=== PATIENT | female | born 1965 | race Caucasian/White ===

== ENCOUNTER 2016-10-04 13:57 | Inpatient (IN) | payer MEDICARE, MEDICAID ==
[~2016-10-04] VITALS: Ht 172.7 cm; Wt 74.8 kg
[2016-10-04] MEDS: DUONEB INH SCH ×3 (15:56→22:26)
[2016-10-04 15:59] VITALS: BP_SYST 120; BP_SYST 124; RESP 18; TEMP 98
[2016-10-04 16:05] VITALS: Ht 172.7 cm; Wt 74.8 kg
[2016-10-04 17:16] VITALS: RESP 20
[2016-10-04] MEDS: METHYLPRED SOD SUCC 125 MG/2 ML VIAL IV SCH ×2 (17:52→23:38)
[2016-10-04] MEDS: OXYCODONE 5 MG TAB PO PRN (18:38)
[2016-10-04 21:09] VITALS: BP_SYST 111; RESP 20; TEMP 98
[2016-10-04] MEDS: PRAMIPEXOLE 1 MG TAB PO SCH (22:02)
[2016-10-04] MEDS: FLUOXETINE 20 MG CAP PO SCH (22:02)
[2016-10-04] MEDS: THEOPHYLLINE SR 200 MG CAP PO SCH (22:02)
[2016-10-04] MEDS: ROFLUMILAST 500 MCG TAB PO SCH (22:02)
[2016-10-04] MEDS: QUEtiapine 200 MG TAB PO SCH (22:03)
[2016-10-04] MEDS: DIVALPROEX DR 500 MG TAB PO SCH (22:03)
[2016-10-04] MEDS: NICOTINE 21 MG/24 HR TRANSDERM SCH (22:04)
[2016-10-04] MEDS: ACETAMIN/BUTALB/CAFF PO PRN (22:46)
[2016-10-04 23:06] VITALS: BP_SYST 136; RESP 20; TEMP 97.9
[2016-10-05] MEDS: DUONEB INH SCH ×6 (02:10→22:03)
[2016-10-05] MEDS ORDERED: NITROGLYCERIN SL 0.4 MG TAB SL ONE (02:39)
[2016-10-05] MEDS: OXYCODONE 5 MG TAB PO PRN ×3 (03:38→19:43)
[2016-10-05 04:15] VITALS: BP_SYST 120; RESP 18; TEMP 98
[2016-10-05] MEDS: ACETAMIN/BUTALB/CAFF PO PRN ×3 (06:33→23:00)
[2016-10-05] MEDS: METHYLPRED SOD SUCC 125 MG/2 ML VIAL IV SCH ×3 (08:06→23:00)
[2016-10-05] MEDS: ROFLUMILAST 500 MCG TAB PO SCH (08:07)
[2016-10-05] MEDS: THEOPHYLLINE SR 200 MG CAP PO SCH (08:07)
[2016-10-05] MEDS: NICOTINE 21 MG/24 HR TRANSDERM SCH (08:07)
[2016-10-05] MEDS: DIVALPROEX DR 500 MG TAB PO SCH ×2 (08:07→19:43)
[2016-10-05 08:10] VITALS: BP_SYST 110; RESP 20; TEMP 97.4
[2016-10-05 11:33] VITALS: BP_SYST 123; RESP 20; TEMP 97.9
[2016-10-05 17:54] VITALS: BP_SYST 122; RESP 18; TEMP 97.8
[2016-10-05] MEDS: NEB-BROVANA 15 MCG/2 ML INH SCH (18:04)
[2016-10-05] MEDS: NEB-BUDESONIDE 0.5 MG INH SCH (18:04)
[2016-10-05] MEDS: PRAMIPEXOLE 1 MG TAB PO SCH (19:43)
[2016-10-05] MEDS: QUEtiapine 200 MG TAB PO SCH (19:43)
[2016-10-05] MEDS: FLUOXETINE 20 MG CAP PO SCH (19:43)
[2016-10-05 19:44] VITALS: BP_SYST 124; RESP 20; TEMP 98.3
[2016-10-05 22:52] VITALS: BP_SYST 125; TEMP 98.3
[2016-10-06] MEDS: DUONEB INH SCH ×6 (02:13→22:48)
[2016-10-06 02:34] VITALS: BP_SYST 130; RESP 20; TEMP 98
[2016-10-06] MEDS: OXYCODONE 5 MG TAB PO PRN ×3 (04:00→20:23)
[2016-10-06 07:16] VITALS: BP_SYST 142; RESP 20; TEMP 97.6
[2016-10-06] MEDS: ACETAMIN/BUTALB/CAFF PO PRN ×3 (07:16→23:22)
[2016-10-06] MEDS: NEB-BROVANA 15 MCG/2 ML INH SCH ×2 (08:12→18:04)
[2016-10-06] MEDS: NEB-BUDESONIDE 0.5 MG INH SCH ×2 (08:13→18:04)
[2016-10-06] MEDS: NICOTINE 21 MG/24 HR TRANSDERM SCH (08:14)
[2016-10-06] MEDS: METHYLPRED SOD SUCC 125 MG/2 ML VIAL IV SCH ×3 (08:14→23:22)
[2016-10-06] MEDS: THEOPHYLLINE SR 200 MG CAP PO SCH (08:15)
[2016-10-06] MEDS: ROFLUMILAST 500 MCG TAB PO SCH (08:15)
[2016-10-06] MEDS: DIVALPROEX DR 500 MG TAB PO SCH ×2 (08:15→20:21)
[2016-10-06] MEDS ORDERED: MISSING DOSE XX ONE ×2 (09:20→17:00)
[2016-10-06] MEDS ORDERED: ALU/MAG/SIM 30 ML UDC PO PRN (11:45)
[2016-10-06 12:16] VITALS: BP_SYST 129; RESP 20; TEMP 97.8
[2016-10-06] MEDS: FAMOTIDINE 20 MG TAB PO SCH ×2 (13:37→20:21)
[2016-10-06 16:34] VITALS: BP_SYST 129; RESP 20; TEMP 97.6
[2016-10-06 19:33] VITALS: BP_SYST 119; RESP 18; TEMP 98.2
[2016-10-06] MEDS: QUEtiapine 200 MG TAB PO SCH (20:21)
[2016-10-06] MEDS: PRAMIPEXOLE 1 MG TAB PO SCH (20:21)
[2016-10-06] MEDS: BISOPROLOL 5 MG TAB PO SCH (20:21)
[2016-10-06] MEDS: FLUOXETINE 20 MG CAP PO SCH (20:22)
[2016-10-06] MEDS: TERBUTALINE SULF 2.5 MG TAB PO SCH ×2 (20:22→20:23)
[2016-10-06] MEDS ORDERED: SALINE FLUSH 10 ML FLUSH PRN (20:30)
[2016-10-06] MEDS ORDERED: TERBUTALINE SULF 2.5 MG TAB PO SCH (21:00)
[2016-10-06 23:11] VITALS: BP_SYST 119; RESP 18; TEMP 97.3
[2016-10-07] MEDS: DUONEB INH SCH ×6 (02:14→23:01)
[2016-10-07 03:40] VITALS: BP_SYST 116; RESP 20; TEMP 97.4
[2016-10-07] MEDS: OXYCODONE 5 MG TAB PO PRN ×3 (04:25→20:47)
[2016-10-07] MEDS: SODIUM CHLORIDE 0.9% FLUSH BAG 500 ML IV SCH (05:40)
[2016-10-07] MEDS: NEB-BROVANA 15 MCG/2 ML INH SCH ×2 (06:31→18:21)
[2016-10-07] MEDS: NEB-BUDESONIDE 0.5 MG INH SCH ×2 (06:31→18:21)
[2016-10-07 07:10] VITALS: BP_SYST 117; RESP 16; TEMP 98
[2016-10-07] MEDS: ACETAMIN/BUTALB/CAFF PO PRN ×3 (07:29→23:17)
[2016-10-07] MEDS: SALINE FLUSH 10 ML FLUSH SCH ×2 (10:11→20:58)
[2016-10-07] MEDS: THEOPHYLLINE SR 200 MG CAP PO SCH (10:11)
[2016-10-07] MEDS: METHYLPRED SOD SUCC 125 MG/2 ML VIAL IV SCH (10:11)
[2016-10-07] MEDS: NICOTINE 21 MG/24 HR TRANSDERM SCH (10:12)
[2016-10-07] MEDS: DIVALPROEX DR 500 MG TAB PO SCH ×2 (10:12→20:47)
[2016-10-07] MEDS: TERBUTALINE SULF 2.5 MG TAB PO SCH ×4 (10:12→21:00)
[2016-10-07] MEDS: FAMOTIDINE 20 MG TAB PO SCH ×2 (10:12→20:47)
[2016-10-07] MEDS: ROFLUMILAST 500 MCG TAB PO SCH (10:13)
[2016-10-07] MEDS: METHYLPRED SOD SUCC 40 MG VIAL IV SCH ×3 (10:24→23:19)
[2016-10-07] MEDS: GUAIFEN/DM 600/30 TAB PO SCH ×2 (10:24→20:47)
[2016-10-07] MEDS: BISOPROLOL 5 MG TAB PO SCH (10:24)
[2016-10-07 11:05] VITALS: BP_SYST 117; RESP 16; TEMP 97.7
[2016-10-07 15:37] VITALS: BP_SYST 126; RESP 16; TEMP 98.2
[2016-10-07] MEDS ORDERED: MISSING DOSE XX ONE (15:40)
[2016-10-07 19:25] VITALS: BP_SYST 121; RESP 20; TEMP 97.8
[2016-10-07] MEDS ORDERED: Furosemide 20 MG/2 ML VIAL IV ONE (20:05)
[2016-10-07] MEDS: PRAMIPEXOLE 1 MG TAB PO SCH (20:46)
[2016-10-07] MEDS: FLUOXETINE 20 MG CAP PO SCH (20:46)
[2016-10-07] MEDS: QUEtiapine 200 MG TAB PO SCH (20:47)
[2016-10-08] MEDS: DUONEB INH SCH ×3 (03:01→10:09)
[2016-10-08 04:12] VITALS: BP_SYST 110; RESP 18; TEMP 97.9
[2016-10-08] MEDS: OXYCODONE 5 MG TAB PO PRN (04:43)
[2016-10-08] MEDS: SODIUM CHLORIDE 0.9% FLUSH BAG 500 ML IV SCH (05:57)
[2016-10-08] MEDS: NEB-BROVANA 15 MCG/2 ML INH SCH (06:38)
[2016-10-08] MEDS: NEB-BUDESONIDE 0.5 MG INH SCH (06:38)
[2016-10-08 07:24] VITALS: BP_SYST 116; RESP 16; TEMP 97.9
[2016-10-08] MEDS: ACETAMIN/BUTALB/CAFF PO PRN (07:32)
[2016-10-08] MEDS: NICOTINE 21 MG/24 HR TRANSDERM SCH (08:26)
[2016-10-08] MEDS: SALINE FLUSH 10 ML FLUSH SCH (08:26)
[2016-10-08] MEDS: METHYLPRED SOD SUCC 40 MG VIAL IV SCH (08:26)
[2016-10-08] MEDS: DIVALPROEX DR 500 MG TAB PO SCH (08:27)
[2016-10-08] MEDS: FAMOTIDINE 20 MG TAB PO SCH (08:27)
[2016-10-08] MEDS: TERBUTALINE SULF 2.5 MG TAB PO SCH (08:27)
[2016-10-08] MEDS: GUAIFEN/DM 600/30 TAB PO SCH (08:27)
[2016-10-08] MEDS: ROFLUMILAST 500 MCG TAB PO SCH (08:28)
[2016-10-08] MEDS ORDERED: BISOPROLOL 5 MG TAB PO SCH (09:00)
[2016-10-08] MEDS ORDERED: THEOPHYLLINE SR 100 MG CAP PO SCH (09:00)
[2016-10-08 10:57] VITALS: BP_SYST 116; RESP 16; TEMP 97.9
== END 2016-10-08 11:48 | disposition home or self-care (01) | DRG 191 ==
LOC: ENRESERVTM → ENRESERVDT → 4NT 15:23 → OBSVTOIN 10-05 14:08 → ENPENDDIS 10-05 14:08
PROVIDERS: ADMIT Internal Medicine; ATTEND Internal Medicine
DX: J44.1 Chronic obstructive pulmonary disease with (acute) exacerbation (principal); F11.20 Opioid dependence, uncomplicated; F17.210 Nicotine dependence, cigarettes, uncomplicated; M79.7 Fibromyalgia; K21.9 Gastro-esophageal reflux disease without esophagitis; F31.9 Bipolar disorder, unspecified; F41.9 Anxiety disorder, unspecified; G43.909 Migraine, unspecified, not intractable, without status migrainosus; G89.4 Chronic pain syndrome
CPT/HCPCS: 36600; 71010; 71020; 80048; 80053; 82553; 82803; 84484; 85025; 93005; 94640; 94799